=== PATIENT | male | born 1955 | race Two or more races ===

== ENCOUNTER 2020-04-19 15:23 | Inpatient (IN) | payer MEDICAID ==
[~2020-04-19] VITALS: Ht 167.6 cm; Wt 72.1 kg
[2020-04-19] MEDS ORDERED: SODIUM CHLORIDE 0.9% 1,000 ML IV ONE (15:46)
[2020-04-19 16:40] LABS: HEMATOCRIT. 49.8 % (42.0-52.0); HEMOGLOBIN. 17.6 g/dL (14.0-18.0); MEAN CORPUSCULAR HEMOGLOBIN 33.3 pg (28.0-32.0); MEAN CORPUSCULAR VOLUME 93.9 fL (80.0-94.0); MEAN PLATELET VOLUME 10.1 fl (7.4-10.4); PLATELET 204 x1000/uL (130-400); RED CELL DISTRIBUTION WIDTH 13.3 % (11.6-14.6)
[2020-04-19 16:43] LABS: CLARITY URINE CLOUDY (CLEAR); COLOR URINE DARK YELLOW (YELLOW); KETONES URINE TRACE (NEGATIVE); LEUKOCYTE ESTERASE URINE 1+ (NEGATIVE); NITRITE URINE NEGATIVE (NEGATIVE); OCCULT BLOOD URINE 3+ (NEGATIVE); PH URINE 5.5 (4.5-8.0); PROTEIN URINE 3+ (NEGATIVE); SPECIFIC GRAVITY URINE 1.024 (1.005-1.030)
[2020-04-19 16:48] LABS: CHLORIDE 112 mEq/L (98-107)
[2020-04-19 16:51] LABS: *AMPHETAMINES SCREEN URINE NEGATIVE (NEGATIVE); *BARBITURATES SCREEN URINE NEGATIVE (NEGATIVE); *BENZODIAZEPINES SCREEN URINE NEGATIVE (NEGATIVE); *COCAINE SCREEN URINE NEGATIVE (NEGATIVE); METHADONE URINE SCREEN NEGATIVE (NEGATIVE); OPIATES URINE SCREEN NEGATIVE (NEGATIVE)
[2020-04-19 16:52] LABS: CANNABINOID URINE SCREEN PRESUMTIVE POSITIVE (NEGATIVE); ETHANOL BLOOD < 10 mg/dL; PHENCYCLIDINE URINE SCREEN NEGATIVE (NEGATIVE)
[2020-04-19 16:56] LABS: CREATINE KINASE 58 IU/L (39-308)
[2020-04-19] MEDS ORDERED: CEFTRIAXONE 2 G PREMIX 50 ML IV ONE (17:30)
[2020-04-19] MEDS ORDERED: SODIUM CHLORIDE 0.9% 1000ML BAG (SEPSIS BOLUS) IV ONE (17:30)
[2020-04-19 19:04] LABS: PLATELET ESTIMATE NORMAL
[2020-04-19] MEDS ORDERED: CLONIDINE 0.1MG TABLET PO PRN (21:15)
[2020-04-19] MEDS ORDERED: ONDANSETRON HCL 4MG/2ML INJ IV PRN (21:15)
[2020-04-19] MEDS ORDERED: ACETAMINOPHEN 325MG TABLET PO PRN (21:15)
[2020-04-19] MEDS ORDERED: HYDROCODONE/ACETAMINOPHEN 5/325MG TABLET PO PRN (21:15)
[2020-04-19] MEDS ORDERED: MAGNESIUM/ALUMINUM HYDROXIDE/SIMETHICONE 30ML UDC PO PRN (21:15)
[2020-04-19] MEDS ORDERED: LEVOFLOXACIN 500MG PREMIX 100 ML IV SCH (21:30)
[2020-04-19] MEDS: ENOXAPARIN 40MG/0.4ML SYR SUBCUT SCH (21:30)
[2020-04-19] MEDS: SODIUM CHLORIDE 0.45% 1,000 ML IV SCH (21:30)
[2020-04-20 05:30] LABS: BASOPHILS % 0.3 % (0.0-2.0); HEMATOCRIT. 49.5 % (42.0-52.0); HEMOGLOBIN. 17.3 g/dL (14.0-18.0); LYMPHOCYTES % 11.6 % (20.0-50.0); MEAN CORPUSCULAR VOLUME 94.5 fL (80.0-94.0); MEAN PLATELET VOLUME 9.7 fl (7.4-10.4); MONOCYTES % 6.9 % (2.0-8.0); NEUTROPHILS % 80.2 % (40.0-76.0); PLATELET 192 x1000/uL (130-400); RED BLOOD CELL COUNT 5.23 mill/uL (4.7-6.1); RED CELL DISTRIBUTION WIDTH 13.4 % (11.6-14.6)
[2020-04-20 05:42] LABS: CHLORIDE 109 mEq/L (98-107)
[2020-04-20 05:52] LABS: LDL CHOLESTEROL 108 mg/dL (5-100)
[2020-04-20 05:53] LABS: HDL CHOLESTEROL 41 mg/dL (40-59)
[2020-04-20] MEDS: SODIUM CHLORIDE 0.45% 1,000 ML IV SCH ×2 (10:52→20:46)
[2020-04-20 16:00] VITALS: BP 158/50
[2020-04-20 16:06] VITALS: BP 158/50
[2020-04-20 18:00] VITALS: BP 155/100
[2020-04-20 20:00] VITALS: BP 146/99
[2020-04-20] MEDS: ENOXAPARIN 40MG/0.4ML SYR SUBCUT SCH (20:47)
[2020-04-20] MEDS: LEVOFLOXACIN 500MG PREMIX 100 ML IV SCH (20:47)
[2020-04-20] MEDS ORDERED: VANCOMYCIN 1250MG in DEXTROSE 5% WATER 250ML IV SCH (21:30)
[2020-04-20 22:00] VITALS: BP 132/97
[2020-04-21] VITALS (7 sets, daily range): BP systolic 119–176; BP diastolic 87–114
[2020-04-21 06:15] LABS: CHLORIDE 108 mEq/L (98-107)
[2020-04-21 06:16] LABS: BASOPHILS % 0.3 % (0.0-2.0); EOSINOPHILS % 0.7 % (0.0-5.0); HEMATOCRIT. 49.5 % (42.0-52.0); HEMOGLOBIN. 17.3 g/dL (14.0-18.0); LYMPHOCYTES % 9.3 % (20.0-50.0); MEAN CORPUSCULAR HEMOGLOBIN 32.9 pg (28.0-32.0); MEAN CORPUSCULAR VOLUME 94.2 fL (80.0-94.0); MEAN PLATELET VOLUME 9.9 fl (7.4-10.4); MONOCYTES % 9.9 % (2.0-8.0); NEUTROPHILS % 79.8 % (40.0-76.0); PLATELET 179 x1000/uL (130-400); RED BLOOD CELL COUNT 5.25 mill/uL (4.7-6.1); RED CELL DISTRIBUTION WIDTH 13.2 % (11.6-14.6)
[2020-04-21] MEDS: VANCOMYCIN 1 G PREMIX 200 ML IV SCH ×2 (09:43→20:33)
[2020-04-21] MEDS: SODIUM CHLORIDE 0.45% 1,000 ML IV SCH (12:34)
[2020-04-21] MEDS ORDERED: POTASSIUM CHLORIDE 20MEQ TABLET SR PO SCH (13:00)
[2020-04-21] MEDS: AMLODIPINE 10MG TABLET PO SCH (13:43)
[2020-04-21] MEDS: HYDRALAZINE HCL 25MG TABLET PO SCH ×2 (13:44→21:17)
[2020-04-21] MEDS: LEVOFLOXACIN 500MG PREMIX 100 ML IV SCH (20:32)
[2020-04-21] MEDS: ENOXAPARIN 40MG/0.4ML SYR SUBCUT SCH (20:37)
[2020-04-22] MEDS: SODIUM CHLORIDE 0.45% 1,000 ML IV SCH (04:53)
[2020-04-22] MEDS: HYDRALAZINE HCL 25MG TABLET PO SCH (05:00)
[2020-04-22 07:11] LABS: BASOPHILS % 0.3 % (0.0-2.0); EOSINOPHILS % 1.6 % (0.0-5.0); HEMATOCRIT. 47.1 % (42.0-52.0); HEMOGLOBIN. 16.9 g/dL (14.0-18.0); LYMPHOCYTES % 11.6 % (20.0-50.0); MEAN CORPUSCULAR HEMOGLOBIN 33.5 pg (28.0-32.0); MEAN CORPUSCULAR VOLUME 93.4 fL (80.0-94.0); MEAN PLATELET VOLUME 10.1 fl (7.4-10.4); MONOCYTES % 9.7 % (2.0-8.0); NEUTROPHILS % 76.8 % (40.0-76.0); PLATELET 169 x1000/uL (130-400); RED BLOOD CELL COUNT 5.04 mill/uL (4.7-6.1); RED CELL DISTRIBUTION WIDTH 13.6 % (11.6-14.6)
[2020-04-22 07:13] LABS: CHLORIDE 108 mEq/L (98-107)
[2020-04-22 08:00] VITALS: BP 124/83
[2020-04-22] MEDS: VANCOMYCIN 1 G PREMIX 200 ML IV SCH (08:41)
[2020-04-22] MEDS: AMLODIPINE 10MG TABLET PO SCH (08:42)
[2020-04-22 12:00] VITALS: BP 101/58
[2020-04-22] MEDS ORDERED: HYDR-4135 MT (12:25)
[2020-04-22] MEDS ORDERED: NITR-87 MT (12:25)
[2020-04-22] MEDS ORDERED: ATOR20TA MT (12:25)
[2020-04-22] MEDS ORDERED: AMLO10TA4 PO (12:28)
[2020-04-22] MEDS ORDERED: HYDRALAZINE HCL 50MG TABLET PO SCH (14:00)
[2020-04-22 16:00] VITALS: BP 125/85
[2020-04-22 18:25] VITALS: BP 110/84
[2020-04-22 20:00] VITALS: BP 99/62
[2020-04-22] MEDS ORDERED: LEVOFLOXACIN 500MG TABLET PO SCH (21:00)
[2020-04-22] MEDS ORDERED: ATORVASTATIN CALCIUM 20MG TABLET PO SCH (21:00)
[2020-04-23] MEDS ORDERED: VANCOMYCIN 1 G PREMIX 200 ML IV SCH (06:00)
== END 2020-04-22 21:45 | disposition home or self-care (01) | DRG 720 ==
LOC: ER 15:23 → MICUSO 18:29 → EDBEDREQ 18:30 → EDBEDREQTM 18:30 → 5EST 04-20 15:10
PROVIDERS: ADMIT Hospitalist; ATTEND Hospitalist
DX: A41.9 Sepsis, unspecified organism (principal); N39.0 Urinary tract infection, site not specified; I10 Essential (primary) hypertension; I95.9 Hypotension, unspecified; G91.9 Hydrocephalus, unspecified; B96.89 Other specified bacterial agents as the cause of diseases classified elsewhere; E78.5 Hyperlipidemia, unspecified; Z86.73 Personal history of transient ischemic attack (TIA), and cerebral infarction without residual deficits; E87.8 Other disorders of electrolyte and fluid balance, not elsewhere classified
CPT/HCPCS: 36415; 71045; 80048; 80053; 80061; 80202; 80305; 80320; 81003; 82140; 82550; 83605; 83735; 83880; 84484; 85025; 93005; 93970; 97162; 97530; 99291; J1650; J1956; J3370; J7030; J7060; G0480

== ENCOUNTER 2021-12-29 02:52 | Emergency (ER) | payer MEDICAID ==
[~2021-12-29] VITALS: Ht 170.2 cm; Wt 80.0 kg
[~2021-12-29 02:52] MED LIST: AMLO10TA4 PO; ATOR20TA MT; HYDR-4135 MT; NITR-87 MT
[2021-12-29] MEDS ORDERED: NEOMYCIN/POLYMYXN B/GRAMICIDIN OPHTH DROPS 10ML BOTHEYE STA (03:37)
[2021-12-29] MEDS ORDERED: BACI3.5O19 EACHEYE (04:15)
[2021-12-29 05:25] VITALS: BP 119/79
== END 2021-12-29 07:18 ==
LOC: ER 02:52
DX: H10.023 Other mucopurulent conjunctivitis, bilateral (principal); H17.89 Other corneal scars and opacities; I10 Essential (primary) hypertension; H54.8 Legal blindness, as defined in USA; Z86.73 Personal history of transient ischemic attack (TIA), and cerebral infarction without residual deficits
CPT/HCPCS: 99283

== ENCOUNTER 2023-01-17 01:48 | Emergency (ER) | payer MEDICAID ==
[~2023-01-17] VITALS: Ht 167.6 cm; Wt 60.0 kg
[~2023-01-17 01:48] MED LIST changes: +BACI3.5O19 EACHEYE
[2023-01-17] MEDS ORDERED: PIPERACILLIN/TAZ 3.375G PREMIX 50 ML IV ONE (03:00)
[2023-01-17] MEDS ORDERED: VANCOMYCIN 1G PREMIX 200 ML IV ONE (03:00)
[2023-01-17] MEDS ORDERED: SODIUM CHLORIDE 0.9% 1,000 ML IV ONE (03:00)
[2023-01-17 03:56] LABS: BASOPHILS % 0.4 % (0.0-2.0); EOSINOPHILS % 3.3 % (0.0-5.0); HEMATOCRIT. 42.1 % (42.0-52.0); LYMPHOCYTES % 11.7 % (20.0-50.0); MEAN CORPUSCULAR HEMOGLOBIN 28.5 pg (28.0-32.0); MEAN CORPUSCULAR VOLUME 85.8 fL (80.0-94.0); MEAN PLATELET VOLUME 9.5 fl (7.4-10.4); MONOCYTES % 10.8 % (2.0-8.0); NEUTROPHILS % 73.8 % (40.0-76.0); PLATELET 225 x1000/uL (130-400); RED CELL DISTRIBUTION WIDTH 13.4 % (11.6-14.6)
[2023-01-17 04:12] LABS: CHLORIDE 108 mEq/L (98-107)
[2023-01-17] MEDS ORDERED: PRED10TA MT (04:53)
[2023-01-17 12:20] VITALS: BP 123/78
== END 2023-01-17 12:47 ==
LOC: ER 01:48
DX: R05.9 Cough, unspecified (principal); I10 Essential (primary) hypertension; Z20.822 Contact with and (suspected) exposure to COVID-19; Z86.73 Personal history of transient ischemic attack (TIA), and cerebral infarction without residual deficits
CPT/HCPCS: 36415; 71045; 80053; 83605; 83880; 84484; 85025; 85379; 87040; 87426; 87804; 93005; 96365; 96366; 96368; 99285; C9803; J2543; J3370; Z7610

== ENCOUNTER 2023-05-15 15:17 | Inpatient (IN) | payer MEDICAID ==
[~2023-05-15] VITALS: Ht 165.1 cm; Wt 47.2 kg
[~2023-05-15 15:17] MED LIST changes: -AMLO10TA4 PO; -BACI3.5O19 EACHEYE; -HYDR-4135 MT; -NITR-87 MT; +PROT40 PO
[2023-05-15] MEDS ORDERED: PIPERACILLIN/TAZ 3.375G PREMIX 50 ML IV NR (16:10)
[2023-05-15] MEDS ORDERED: PIPERACILLIN/TAZOBACTAM 3.375GM/50ML PREMIX IV ONE (16:15)
[2023-05-15] MEDS ORDERED: SODIUM CHLORIDE 0.9% 1000ML BAG (SEPSIS BOLUS) IV ONE (16:15)
[2023-05-15] MEDS ORDERED: VANCOMYCIN 1G PREMIX 200 ML IV SCH (16:15)
[2023-05-15 16:35] LABS: MEAN CORPUSCULAR HGB CONC 30.6 g/dL (31.0-37.0); MEAN CORPUSCULAR VOLUME 78.5 fL (80.0-94.0); MEAN PLATELET VOLUME 9.5 fl (7.4-10.4); PLATELET 470 x1000/uL (130-400); RED BLOOD CELL COUNT 4.59 mill/uL (4.7-6.1); RED CELL DISTRIBUTION WIDTH 19.3 % (11.6-14.6); WHITE BLOOD COUNT 27.2 x1000/uL (4.5-11.0)
[2023-05-15 16:36] LABS: DIFFERENTIAL COMMENT 1
[2023-05-15 16:51] LABS: CHLORIDE 115 mEq/L (98-107); INDEX HEMOLYSI 4 (1-3); INDEX ICTERIC 1 (1-4); INDEX LIPEMIC 1 (1-3); POTASSIUM 4.2 mEq/L (3.5-5.1); SODIUM 144 mEq/L (136-145)
[2023-05-15 17:00] LABS: ALANINE AMINOTRANSFERASE 14 IU/L (13-61); ALBUMIN 1.9 g/dL (3.4-5.0); ASPARTATE AMINOTRANSFERASE 26 IU/L (15-37); BILIRUBIN TOTAL 0.4 mg/dL (0.1-1.0); CALCIUM 7.8 mg/dL (8.5-10.1); CARBON DIOXIDE 25 mEq/L (21-32); CREATININE 0.8 mg/dL (0.6-1.3); GLUCOSE 113 mg/dL (70-105); PROTEIN TOTAL 5.8 g/dL (6.0-8.3); TROPONIN I HIGH SENSITIVITY 11 ng/L (<78); UREA NITROGEN BLOOD 23 mg/dL (7-21)
[2023-05-15 17:39] LABS: CLARITY URINE CLEAR (CLEAR); COLOR URINE YELLOW (YELLOW); GLUCOSE URINE NEGATIVE (NEGATIVE); KETONES URINE NEGATIVE (NEGATIVE); LEUKOCYTE ESTERASE URINE NEGATIVE (NEGATIVE); NITRITE URINE NEGATIVE (NEGATIVE); OCCULT BLOOD URINE 3+ (NEGATIVE); PH URINE 5.5 (4.5-8.0); PROTEIN URINE 2+ (NEGATIVE); SPECIFIC GRAVITY URINE 1.024 (1.005-1.030); UROBILINOGEN URINE 0.2 E.U./dL (0.2-1.0)
[2023-05-15 18:07] LABS: BACTERIA URINE 1+; SQUAMOUS EPITHELIAL CELL URINE RARE /lpf (RARE/1+)
[2023-05-15 18:08] LABS: WBC URINE 0-2 /hpf (0-2)
[2023-05-15 18:09] LABS: INR 1.2; PROTHROMBIN TIME 12.5 sec (9.6-11.0)
[2023-05-15 19:03] LABS: ANISOCYTOSIS 1+; HYPOCHROMASIA 1+; MICROCYTOSIS 1+; PLATELET ESTIMATE INCREASED
[2023-05-15] MEDS ORDERED: ACETAMINOPHEN 325MG SUPP PR ONE (19:30)
[2023-05-15 19:44] LABS: TROPONIN I HIGH SENSITIVITY 26 ng/L (<78)
[2023-05-15] MEDS ORDERED: ACETAMINOPHEN 650MG SUPP PR ONE (19:45)
[2023-05-15 21:43] VITALS: PULSE 139; RESP 36
[2023-05-15] MEDS ORDERED: PROPOFOL 10MG/ML 100ML 100 ML IV SCH (22:15)
[2023-05-15] MEDS ORDERED: ETOMIDATE 2MG/ML 10ML VIAL IV ONE (22:15)
[2023-05-15] MEDS ORDERED: SUCCINYLCHOLINE CHLORIDE 200MG/10ML IV ONE (22:15)
[2023-05-15 23:32] LABS: BG BASE EXCESS 1.5 mmol/L (-2.0-2.0); BG CARBOXYHEMOGLOBIN 0.3 % (0.5-1.5); BG DEOXYHEMOGLOBIN 0.2 % (0.0-5.0); BG FRACTION INSPIRED OXYGEN 100; BG HCO3 ACT 23.6 mmol/L (22.0-26.0); BG METHEMOGLOBIN 0.3 % (0.0-1.5); BG OXYGEN SATURATION 99.8 % (92.0-98.5); BG OXYHEMOGLOBIN 99.2 % (94.0-97.0); BG PCO2 29.4 mmHg (35.0-45.0); BG PH 7.522 (7.350-7.450); BG SAMPLE SITE RIGHT RADIAL; BG TOTAL HEMOGLOBIN 11.6 g/dL (12.0-18.0); BG VENT MODE VENT - AC
[2023-05-16] VITALS (90 sets, daily range): BP systolic 52–131; BP diastolic 28–76; PULSE 79–151; RESP 19–49; TEMP 97.8–100.7
[2023-05-16] MEDS ORDERED: DIGOXIN 500MCG/2ML AMP IV NR (01:30)
[2023-05-16] MEDS: CEFEPIME 1,000 MG in DEXTROSE 5% WATER 50 ML IV SCH ×2 (05:24→18:11)
[2023-05-16] MEDS: METRONIDAZOLE 500 MG PREMIX 100 ML IV SCH ×3 (05:25→21:14)
[2023-05-16] MEDS ORDERED: DIGOXIN 500MCG/2ML AMP IV PRN (06:00)
[2023-05-16] MEDS: IPRATROPIUM BROMIDE (0.02%) 0.5MG/2.5ML NEB HHN SCH ×3 (08:27→20:11)
[2023-05-16] MEDS ORDERED: SODIUM CHLORIDE 0.9% 250 ML IV ONE (08:30)
[2023-05-16 08:32] LABS: BG CARBOXYHEMOGLOBIN 0.2 % (0.5-1.5); BG DEOXYHEMOGLOBIN 0.7 % (0.0-5.0); BG FRACTION INSPIRED OXYGEN 70; BG HCO3 ACT 21.5 mmol/L (22.0-26.0); BG METHEMOGLOBIN 0.3 % (0.0-1.5); BG OXYGEN SATURATION 99.3 % (92.0-98.5); BG OXYHEMOGLOBIN 98.8 % (94.0-97.0); BG PCO2 26.2 mmHg (35.0-45.0); BG PH 7.532 (7.350-7.450); BG PO2 199.5 mmHg (75.0-100.0); BG SAMPLE SITE RIGHT RADIAL; BG TOTAL HEMOGLOBIN 11.8 g/dL (12.0-18.0); BG VENT MODE VENT - AC
[2023-05-16] MEDS: SODIUM CHLORIDE 0.9% 1,000 ML IV SCH ×2 (08:33→21:16)
[2023-05-16] MEDS: PHENYLEPHRINE 50 MG in DEXT 5% WATER 245 ML IV PRN ×2 (08:39→18:07)
[2023-05-16 08:56] LABS: HEMATOCRIT. 36.1 % (42.0-52.0); HEMOGLOBIN. 10.9 g/dL (14.0-18.0); MEAN CORPUSCULAR HGB CONC 30.2 g/dL (31.0-37.0); MEAN CORPUSCULAR VOLUME 79.6 fL (80.0-94.0); MEAN PLATELET VOLUME 9.5 fl (7.4-10.4); PLATELET 488 x1000/uL (130-400); RED BLOOD CELL COUNT 4.54 mill/uL (4.7-6.1); WHITE BLOOD COUNT 33.9 x1000/uL (4.5-11.0)
[2023-05-16] MEDS ORDERED: DIATR MEGLU/DIATRIZOATE SOLN 30ML PO SCH (09:00)
[2023-05-16 09:03] LABS: DIFFERENTIAL COMMENT 1
[2023-05-16 09:23] LABS: POTASSIUM 4.8 mEq/L (3.5-5.1)
[2023-05-16 09:36] LABS: CALCIUM 8.2 mg/dL (8.5-10.1); CREATININE 1.7 mg/dL (0.6-1.3)
[2023-05-16 09:47] LABS: DIFFERENTIAL COMMENT 1; HEMATOCRIT. 38.4 % (42.0-52.0); HEMOGLOBIN. 11.5 g/dL (14.0-18.0); MEAN CORPUSCULAR HEMOGLOBIN 24.4 pg (28.0-32.0); MEAN CORPUSCULAR VOLUME 81.3 fL (80.0-94.0); MEAN PLATELET VOLUME 10.2 fl (7.4-10.4); PLATELET 522 x1000/uL (130-400); RED BLOOD CELL COUNT 4.73 mill/uL (4.7-6.1); RED CELL DISTRIBUTION WIDTH 19.8 % (11.6-14.6); WHITE BLOOD COUNT 33.7 x1000/uL (4.5-11.0)
[2023-05-16 09:57] LABS: LACTIC ACID 6.4 mmol/L (0.4-2.0)
[2023-05-16] MEDS ORDERED: LIDOCAINE HCL 1% 10 MG/ML 10ML VIAL ONE (10:49)
[2023-05-16] MEDS ORDERED: AMIODARONE HCL 150 MG in DEXT 5% WATER 100 ML IV NR (11:30)
[2023-05-16] MEDS ORDERED: ALBUMIN HUMAN 25GM/500ML (5%) IV PRN (11:30)
[2023-05-16 13:24] LABS: THYROID STIMULATING HORMONE 3.9 uIU/mL (0.36-3.74)
[2023-05-16 17:44] LABS: ANISOCYTOSIS 2+; HYPOCHROMASIA 1+; PLATELET ESTIMATE INCREASED
[2023-05-16 17:47] LABS: ANISOCYTOSIS 1+; HYPOCHROMASIA 1+; MICROCYTOSIS 1+; PLATELET ESTIMATE INCREASED
[2023-05-16] MEDS: DEXTROSE 5% IV SCH (18:10)
[2023-05-16] MEDS: ACYCLOVIR IV SCH (18:10)
[2023-05-16] MEDS: WATER IV SCH (18:10)
[2023-05-16] MEDS: VANCOMYCIN 1000MG/20ML ORAL SOLN PO SCH ×2 (18:30→23:12)
[2023-05-16] MEDS: AMIODARONE HCL 900 MG in DEXT 5% WATER 482 ML IV SCH (19:55)
[2023-05-17] VITALS (102 sets, daily range): BP systolic 85–133; BP diastolic 57–93; PULSE 55–88; RESP 16–30; TEMP 97.6–98.8
[2023-05-17] MEDS: PHENYLEPHRINE 50 MG in DEXT 5% WATER 245 ML IV PRN ×3 (00:39→16:27)
[2023-05-17] MEDS: SODIUM CHLORIDE 0.9% 1,000 ML IV SCH ×4 (00:40→23:42)
[2023-05-17] MEDS: WATER IV SCH (05:21)
[2023-05-17] MEDS: DEXTROSE 5% IV SCH (05:21)
[2023-05-17] MEDS: ACYCLOVIR IV SCH (05:21)
[2023-05-17] MEDS: CEFEPIME 1,000 MG in DEXTROSE 5% WATER 50 ML IV SCH ×2 (05:21→17:28)
[2023-05-17 06:04] LABS: CHLORIDE 116 mEq/L (98-107); INDEX HEMOLYSI 1 (1-3); INDEX ICTERIC 1 (1-4); INDEX LIPEMIC 1 (1-3); POTASSIUM 3.1 mEq/L (3.5-5.1); SODIUM 147 mEq/L (136-145)
[2023-05-17 06:11] LABS: CALCIUM 7.5 mg/dL (8.5-10.1); CARBON DIOXIDE 22 mEq/L (21-32); CREATININE 1.1 mg/dL (0.6-1.3); GLUCOSE 140 mg/dL (70-105); UREA NITROGEN BLOOD 44 mg/dL (7-21)
[2023-05-17] MEDS: METRONIDAZOLE 500 MG PREMIX 100 ML IV SCH ×3 (06:12→21:39)
[2023-05-17] MEDS: VANCOMYCIN 1000MG/20ML ORAL SOLN PO SCH ×4 (06:12→23:42)
[2023-05-17 06:30] LABS: HEMATOCRIT. 31.3 % (42.0-52.0); HEMOGLOBIN. 9.3 g/dL (14.0-18.0); MEAN CORPUSCULAR HEMOGLOBIN 23.7 pg (28.0-32.0); MEAN CORPUSCULAR HGB CONC 29.8 g/dL (31.0-37.0); MEAN CORPUSCULAR VOLUME 79.4 fL (80.0-94.0); MEAN PLATELET VOLUME 9.7 fl (7.4-10.4); PLATELET 410 x1000/uL (130-400); RED BLOOD CELL COUNT 3.95 mill/uL (4.7-6.1); RED CELL DISTRIBUTION WIDTH 19.3 % (11.6-14.6); WHITE BLOOD COUNT 28.8 x1000/uL (4.5-11.0)
[2023-05-17 06:33] LABS: DIFFERENTIAL COMMENT 1
[2023-05-17 07:55] LABS: BG BASE EXCESS -2.6 mmol/L (-2.0-2.0); BG CARBOXYHEMOGLOBIN 0.3 % (0.5-1.5); BG DEOXYHEMOGLOBIN 0.6 % (0.0-5.0); BG FRACTION INSPIRED OXYGEN 40; BG HCO3 ACT 19.7 mmol/L (22.0-26.0); BG METHEMOGLOBIN 0.4 % (0.0-1.5); BG OXYGEN SATURATION 99.4 % (92.0-98.5); BG OXYHEMOGLOBIN 98.7 % (94.0-97.0); BG PCO2 26.1 mmHg (35.0-45.0); BG PH 7.496 (7.350-7.450); BG PO2 156.7 mmHg (75.0-100.0); BG SAMPLE SITE LEFT RADIAL; BG TOTAL HEMOGLOBIN 9.5 g/dL (12.0-18.0); BG TOTAL RESPIRATORY RATE 24 b/min; BG VENT MODE VENT - AC
[2023-05-17] MEDS: IPRATROPIUM BROMIDE (0.02%) 0.5MG/2.5ML NEB HHN SCH ×3 (08:46→20:10)
[2023-05-17] MEDS: KCL 20MEQ/100ML PREMIX 100 ML IV SCH ×2 (09:19→12:12)
[2023-05-17 09:52] LABS: ANISOCYTOSIS 1+; PLATELET ESTIMATE SLIGHTLY INCREASED
[2023-05-17] MEDS ORDERED: ALBUMIN HUMAN 25GM/500ML (5%) IV PRN (10:00)
[2023-05-17] MEDS: AMIODARONE HCL 200 MG TABLET GT SCH ×2 (12:12→23:41)
[2023-05-17] MEDS: AMIODARONE HCL 900 MG in DEXT 5% WATER 482 ML IV SCH (13:42)
[2023-05-17] MEDS: ACYCLOVIR INJ 500 MG in DEXT 5% WATER 100 ML IV SCH (18:01)
[2023-05-18] VITALS (99 sets, daily range): BP systolic 82–130; BP diastolic 42–87; PULSE 33–174; RESP 7–36; TEMP 97.7–98.7; O2SAT 99–100
[2023-05-18] MEDS: ACYCLOVIR INJ 500 MG in DEXT 5% WATER 100 ML IV SCH ×3 (01:21→18:07)
[2023-05-18] MEDS: IPRATROPIUM BROMIDE (0.02%) 0.5MG/2.5ML NEB HHN SCH ×4 (01:58→20:06)
[2023-05-18] MEDS: PHENYLEPHRINE 50 MG in DEXT 5% WATER 245 ML IV PRN ×2 (04:45→23:42)
[2023-05-18 05:12] LABS: CHLORIDE 118 mEq/L (98-107); INDEX HEMOLYSI 1 (1-3); INDEX ICTERIC 1 (1-4); INDEX LIPEMIC 1 (1-3); SODIUM 145 mEq/L (136-145)
[2023-05-18 05:13] LABS: CALCIUM 7.5 mg/dL (8.5-10.1)
[2023-05-18 05:18] LABS: CARBON DIOXIDE 20 mEq/L (21-32); CREATININE 0.7 mg/dL (0.6-1.3); GLUCOSE 119 mg/dL (70-105); UREA NITROGEN BLOOD 28 mg/dL (7-21)
[2023-05-18 05:49] LABS: LACTIC ACID 2.1 mmol/L (0.4-2.0)
[2023-05-18] MEDS: CEFEPIME 1,000 MG in DEXTROSE 5% WATER 50 ML IV SCH ×2 (05:52→17:08)
[2023-05-18] MEDS: METRONIDAZOLE 500 MG PREMIX 100 ML IV SCH ×3 (05:52→21:10)
[2023-05-18] MEDS: VANCOMYCIN 1000MG/20ML ORAL SOLN PO SCH ×4 (05:53→23:47)
[2023-05-18 07:07] LABS: HEMATOCRIT. 25.3 % (42.0-52.0); HEMOGLOBIN. 7.4 g/dL (14.0-18.0); MEAN CORPUSCULAR HEMOGLOBIN 23.2 pg (28.0-32.0); MEAN CORPUSCULAR HGB CONC 29.4 g/dL (31.0-37.0); MEAN CORPUSCULAR VOLUME 78.8 fL (80.0-94.0); MEAN PLATELET VOLUME 9.5 fl (7.4-10.4); PLATELET 300 x1000/uL (130-400); RED CELL DISTRIBUTION WIDTH 19.4 % (11.6-14.6); WHITE BLOOD COUNT 18.3 x1000/uL (4.5-11.0)
[2023-05-18 07:13] LABS: DIFFERENTIAL COMMENT 1
[2023-05-18] MEDS ORDERED: POTASSIUM CHLORIDE 20MEQ/PACKET PO ONE (07:30)
[2023-05-18] MEDS ORDERED: POTASSIUM CHLORIDE INJ 40 MEQ in DEXT 5% WATER 250 ML IV ONE (07:30)
[2023-05-18 09:09] LABS: BG BASE EXCESS -4.4 mmol/L (-2.0-2.0); BG CARBOXYHEMOGLOBIN 0.3 % (0.5-1.5); BG DEOXYHEMOGLOBIN 1.4 % (0.0-5.0); BG FRACTION INSPIRED OXYGEN 30; BG HCO3 ACT 18.3 mmol/L (22.0-26.0); BG METHEMOGLOBIN 0.3 % (0.0-1.5); BG OXYGEN SATURATION 98.6 % (92.0-98.5); BG PCO2 25.4 mmHg (35.0-45.0); BG PH 7.475 (7.350-7.450); BG PO2 146.2 mmHg (75.0-100.0); BG SAMPLE SITE RIGHT RADIAL; BG TOTAL HEMOGLOBIN 8.5 g/dL (12.0-18.0); BG VENT MODE VENT - AC
[2023-05-18] MEDS: POTASSIUM CHLORIDE 20MEQ TABLET SR PO SCH (09:39)
[2023-05-18] MEDS: KCL 20MEQ/100ML X 2 FOR TOTAL KCL 40MEQ/200ML IV SCH ×2 (09:40→11:00)
[2023-05-18] MEDS: SODIUM CHLORIDE 0.9% 1,000 ML IV SCH ×3 (09:40→23:45)
[2023-05-18 11:21] LABS: HEMOGLOBIN. 7.6 g/dL (14.0-18.0); MEAN CORPUSCULAR HEMOGLOBIN 23.6 pg (28.0-32.0); MEAN CORPUSCULAR HGB CONC 30.5 g/dL (31.0-37.0); MEAN CORPUSCULAR VOLUME 77.7 fL (80.0-94.0); MEAN PLATELET VOLUME 9.8 fl (7.4-10.4); PLATELET 305 x1000/uL (130-400); RED BLOOD CELL COUNT 3.22 mill/uL (4.7-6.1); RED CELL DISTRIBUTION WIDTH 18.7 % (11.6-14.6); WHITE BLOOD COUNT 17.8 x1000/uL (4.5-11.0)
[2023-05-18 11:24] LABS: BG BASE EXCESS -4.2 mmol/L (-2.0-2.0); BG CARBOXYHEMOGLOBIN 0.2 % (0.5-1.5); BG DEOXYHEMOGLOBIN 1.8 % (0.0-5.0); BG FRACTION INSPIRED OXYGEN 30; BG HCO3 ACT 18.7 mmol/L (22.0-26.0); BG OXYGEN SATURATION 98.2 % (92.0-98.5); BG PCO2 26.4 mmHg (35.0-45.0); BG PH 7.467 (7.350-7.450); BG PO2 139.1 mmHg (75.0-100.0); BG SAMPLE SITE RIGHT RADIAL; BG TOTAL HEMOGLOBIN 8.6 g/dL (12.0-18.0); BG VENT MODE VENT - CPAP
[2023-05-18 11:28] LABS: DIFFERENTIAL COMMENT 1
[2023-05-18 11:47] LABS: PLATELET ESTIMATE NORMAL
[2023-05-18 11:48] LABS: ANISOCYTOSIS 1+
[2023-05-18] MEDS: MUPIROCIN 2% OINT 15GM NS SCH ×2 (13:17→21:12)
[2023-05-18 14:09] LABS: HYPOCHROMASIA 1+; MICROCYTOSIS 1+; PLATELET ESTIMATE NORMAL
[2023-05-18] MEDS ORDERED: MENTHOL/LANOLIN/CALAMINE/ZN OX OINT 71GM TOP PRN (14:45)
[2023-05-18] MEDS: ACETYLCYSTEINE 100MG/ML 10% VIAL 4ML INH SCH (15:46)
[2023-05-18] MEDS ORDERED: VANCOMYCIN 750MG PREMIX 150 ML IV NR (16:00)
[2023-05-19] VITALS (60 sets, daily range): BP systolic 90–138; BP diastolic 52–89; PULSE 63–81; RESP 10–25; TEMP 97.8–98.7; O2SAT 97–100
[2023-05-19] MEDS: IPRATROPIUM BROMIDE (0.02%) 0.5MG/2.5ML NEB HHN SCH ×4 (00:22→20:38)
[2023-05-19] MEDS: ACYCLOVIR INJ 500 MG in DEXT 5% WATER 100 ML IV SCH ×2 (01:21→09:27)
[2023-05-19 06:04] LABS: CHLORIDE 115 mEq/L (98-107); INDEX HEMOLYSI 1 (1-3); INDEX ICTERIC 1 (1-4); INDEX LIPEMIC 1 (1-3); POTASSIUM 3.1 mEq/L (3.5-5.1); SODIUM 143 mEq/L (136-145)
[2023-05-19 06:07] LABS: HEMATOCRIT. 26.7 % (42.0-52.0); HEMOGLOBIN. 8.2 g/dL (14.0-18.0); MEAN CORPUSCULAR HEMOGLOBIN 23.9 pg (28.0-32.0); MEAN CORPUSCULAR HGB CONC 30.5 g/dL (31.0-37.0); MEAN CORPUSCULAR VOLUME 78.4 fL (80.0-94.0); MEAN PLATELET VOLUME 9.9 fl (7.4-10.4); PLATELET 288 x1000/uL (130-400); RED BLOOD CELL COUNT 3.41 mill/uL (4.7-6.1); RED CELL DISTRIBUTION WIDTH 18.7 % (11.6-14.6); WHITE BLOOD COUNT 11.5 x1000/uL (4.5-11.0)
[2023-05-19] MEDS: VANCOMYCIN 500MG PREMIX 100 ML IV SCH ×2 (06:14→18:34)
[2023-05-19] MEDS: CEFEPIME 1,000 MG in DEXTROSE 5% WATER 50 ML IV SCH ×2 (06:14→18:34)
[2023-05-19] MEDS: METRONIDAZOLE 500 MG PREMIX 100 ML IV SCH ×2 (06:14→14:25)
[2023-05-19 06:15] LABS: CALCIUM 7.4 mg/dL (8.5-10.1); CARBON DIOXIDE 22 mEq/L (21-32); CREATININE 0.6 mg/dL (0.6-1.3); GLUCOSE 95 mg/dL (70-105); PHOSPHORUS 1.3 mg/dL (2.5-4.9); UREA NITROGEN BLOOD 15 mg/dL (7-21)
[2023-05-19] MEDS: VANCOMYCIN 1000MG/20ML ORAL SOLN PO SCH ×3 (06:15→18:34)
[2023-05-19 06:41] LABS: DIFFERENTIAL COMMENT 1
[2023-05-19] MEDS ORDERED: POTASSIUM CHLORIDE 20MEQ TABLET SR PO SCH (08:00)
[2023-05-19 08:26] LABS: BG BASE EXCESS -4.4 mmol/L (-2.0-2.0); BG CARBOXYHEMOGLOBIN 0.3 % (0.5-1.5); BG DEOXYHEMOGLOBIN 2.1 % (0.0-5.0); BG FRACTION INSPIRED OXYGEN 21; BG HCO3 ACT 18.5 mmol/L (22.0-26.0); BG METHEMOGLOBIN 0.1 % (0.0-1.5); BG OXYGEN SATURATION 97.9 % (92.0-98.5); BG OXYHEMOGLOBIN 97.5 % (94.0-97.0); BG PCO2 26.6 mmHg (35.0-45.0); BG PH 7.461 (7.350-7.450); BG PO2 106.4 mmHg (75.0-100.0); BG SAMPLE SITE RIGHT RADIAL; BG TOTAL HEMOGLOBIN 8.6 g/dL (12.0-18.0); BG VENT MODE ROOM AIR
[2023-05-19] MEDS: ACETYLCYSTEINE 100MG/ML 10% VIAL 4ML INH SCH ×2 (08:55→15:45)
[2023-05-19] MEDS ORDERED: POTASSIUM PHOS,M-BASIC-D-BASIC 30 MMOL in DEXT 5% WATER 500 ML IV NR (09:00)
[2023-05-19] MEDS: MUPIROCIN 2% OINT 15GM NS SCH ×2 (09:00→21:54)
[2023-05-19] MEDS: POTASSIUM CHLORIDE 20MEQ TABLET SR PO SCH (09:11)
[2023-05-19] MEDS: SODIUM CHLORIDE 0.9% 1,000 ML IV SCH ×2 (09:36→17:32)
[2023-05-19] MEDS: MIDODRINE HCL 5MG TABLET PO SCH ×2 (10:00→18:34)
[2023-05-19 14:22] LABS: PLATELET ESTIMATE NORMAL
[2023-05-19] MEDS ORDERED: KCL 20MEQ/100ML PREMIX 100 ML IV NR (16:00)
[2023-05-19] MEDS: ACYCLOVIR 400 MG TABLET PO SCH (18:34)
[2023-05-19] MEDS: BUDESONIDE 0.5MG/2ML NEB HHN SCH (20:38)
[2023-05-19] MEDS: METRONIDAZOLE 500MG TABLET PO SCH (21:53)
[2023-05-20] VITALS (46 sets, daily range): BP systolic 92–126; BP diastolic 52–85; PULSE 65–89; RESP 9–24; TEMP 97.6–98.7; O2SAT 98–100
[2023-05-20] MEDS: IPRATROPIUM BROMIDE (0.02%) 0.5MG/2.5ML NEB HHN SCH ×4 (00:30→21:16)
[2023-05-20] MEDS: ACETYLCYSTEINE 100MG/ML 10% VIAL 4ML INH SCH ×3 (00:30→14:30)
[2023-05-20] MEDS: ACYCLOVIR 400 MG TABLET PO SCH ×4 (00:38→18:05)
[2023-05-20] MEDS: VANCOMYCIN 1000MG/20ML ORAL SOLN PO SCH ×4 (00:38→18:17)
[2023-05-20] MEDS: SODIUM CHLORIDE 0.9% 1,000 ML IV SCH ×4 (00:40→23:18)
[2023-05-20] MEDS: MIDODRINE HCL 5MG TABLET PO SCH ×3 (02:36→18:05)
[2023-05-20] MEDS: VANCOMYCIN 500MG PREMIX 100 ML IV SCH ×2 (06:22→18:04)
[2023-05-20] MEDS: CEFEPIME 1,000 MG in DEXTROSE 5% WATER 50 ML IV SCH ×2 (06:22→18:05)
[2023-05-20 06:40] LABS: HEMATOCRIT. 26.6 % (42.0-52.0); HEMOGLOBIN. 8.1 g/dL (14.0-18.0); MEAN CORPUSCULAR HEMOGLOBIN 23.7 pg (28.0-32.0); MEAN CORPUSCULAR HGB CONC 30.6 g/dL (31.0-37.0); MEAN CORPUSCULAR VOLUME 77.5 fL (80.0-94.0); PLATELET 275 x1000/uL (130-400); RED BLOOD CELL COUNT 3.43 mill/uL (4.7-6.1); RED CELL DISTRIBUTION WIDTH 18.6 % (11.6-14.6); WHITE BLOOD COUNT 11.1 x1000/uL (4.5-11.0)
[2023-05-20 06:44] LABS: CHLORIDE 113 mEq/L (98-107); INDEX HEMOLYSI 1 (1-3); INDEX ICTERIC 1 (1-4); INDEX LIPEMIC 1 (1-3); POTASSIUM 3.2 mEq/L (3.5-5.1); SODIUM 140 mEq/L (136-145)
[2023-05-20 06:46] LABS: DIFFERENTIAL COMMENT 1
[2023-05-20 06:54] LABS: CALCIUM 7.3 mg/dL (8.5-10.1); CARBON DIOXIDE 20 mEq/L (21-32); CREATININE 0.5 mg/dL (0.6-1.3); GLUCOSE 78 mg/dL (70-105); UREA NITROGEN BLOOD 12 mg/dL (7-21)
[2023-05-20] MEDS ORDERED: POTASSIUM CHLORIDE 20MEQ TABLET SR PO NR (07:00)
[2023-05-20] MEDS: METRONIDAZOLE 500MG TABLET PO SCH ×2 (09:09→21:24)
[2023-05-20] MEDS: POTASSIUM CHLORIDE 20MEQ TABLET SR PO SCH (09:10)
[2023-05-20] MEDS: MUPIROCIN 2% OINT 15GM NS SCH ×2 (09:10→21:25)
[2023-05-20] MEDS: BUDESONIDE 0.5MG/2ML NEB HHN SCH ×2 (09:50→21:17)
[2023-05-20 10:37] LABS: ANISOCYTOSIS 2+; MICROCYTOSIS 1+; PLATELET ESTIMATE NORMAL
[2023-05-20] MEDS ORDERED: SODIUM PHOS,M-BASIC-D-BASIC 20 MM in DEXT 5% WATER 243.3333 ML IV NR (11:00)
[2023-05-21] VITALS (8 sets, daily range): BP systolic 110–126; BP diastolic 72–80; PULSE 66–97; RESP 16–21; TEMP 96–97.8; O2SAT 99
[2023-05-21] MEDS: ACYCLOVIR 400 MG TABLET PO SCH ×4 (00:22→18:17)
[2023-05-21] MEDS: VANCOMYCIN 1000MG/20ML ORAL SOLN PO SCH ×4 (00:24→18:18)
[2023-05-21] MEDS: MIDODRINE HCL 5MG TABLET PO SCH ×3 (00:26→18:17)
[2023-05-21] MEDS: ACETYLCYSTEINE 100MG/ML 10% VIAL 4ML INH SCH ×2 (01:19→15:01)
[2023-05-21] MEDS: CEFEPIME 1,000 MG in DEXTROSE 5% WATER 50 ML IV SCH ×2 (05:47→18:14)
[2023-05-21] MEDS: VANCOMYCIN 500MG PREMIX 100 ML IV SCH ×2 (06:23→19:23)
[2023-05-21 06:56] LABS: HEMATOCRIT. 31.3 % (42.0-52.0); HEMOGLOBIN. 9.3 g/dL (14.0-18.0); MEAN CORPUSCULAR HEMOGLOBIN 23.7 pg (28.0-32.0); MEAN CORPUSCULAR HGB CONC 29.7 g/dL (31.0-37.0); MEAN CORPUSCULAR VOLUME 79.8 fL (80.0-94.0); MEAN PLATELET VOLUME 10.4 fl (7.4-10.4); PLATELET 315 x1000/uL (130-400); RED BLOOD CELL COUNT 3.93 mill/uL (4.7-6.1); RED CELL DISTRIBUTION WIDTH 19.3 % (11.6-14.6); WHITE BLOOD COUNT 13.4 x1000/uL (4.5-11.0)
[2023-05-21 06:58] LABS: DIFFERENTIAL COMMENT 1
[2023-05-21 08:02] LABS: CALCIUM 7.1 mg/dL (8.5-10.1); CARBON DIOXIDE 19 mEq/L (21-32); CREATININE 0.6 mg/dL (0.6-1.3); GLUCOSE 61 mg/dL (70-105); INDEX HEMOLYSI 1 (1-3); INDEX ICTERIC 1 (1-4); INDEX LIPEMIC 1 (1-3); PHOSPHORUS 2.4 mg/dL (2.5-4.9); UREA NITROGEN BLOOD 7 mg/dL (7-21)
[2023-05-21 08:14] LABS: POTASSIUM 3.7 mEq/L (3.5-5.1)
[2023-05-21] MEDS: SODIUM CHLORIDE 0.9% 1,000 ML IV SCH ×2 (08:49→18:11)
[2023-05-21 09:12] LABS: CHLORIDE 113 mEq/L (98-107); SODIUM 140 mEq/L (136-145)
[2023-05-21] MEDS ORDERED: POTASSIUM-SODIUM PHOSPHATE POWDER PACKET PO NR (10:15)
[2023-05-21] MEDS: GUAIFENESIN 200MG/10ML SUGAR FREE UDC PO PRN (10:48)
[2023-05-21] MEDS: METRONIDAZOLE 500MG TABLET PO SCH ×2 (10:48→22:10)
[2023-05-21] MEDS: POTASSIUM CHLORIDE 20MEQ TABLET SR PO SCH (10:48)
[2023-05-21] MEDS: MUPIROCIN 2% OINT 15GM NS SCH ×2 (11:11→21:00)
[2023-05-21 13:24] LABS: ANISOCYTOSIS 2+; MICROCYTOSIS 1+; PLATELET ESTIMATE NORMAL
[2023-05-21] MEDS: BUDESONIDE 0.5MG/2ML NEB HHN SCH ×2 (14:26→20:31)
[2023-05-21] MEDS ORDERED: IPRATROPIUM BROMIDE (0.02%) 0.5MG/2.5ML NEB ONE (14:29)
[2023-05-21] MEDS: IPRATROPIUM BROMIDE (0.02%) 0.5MG/2.5ML NEB HHN SCH (14:30)
[2023-05-22] VITALS (8 sets, daily range): BP systolic 110–143; BP diastolic 60–89; PULSE 61–105; RESP 18–22; TEMP 96–98.8
[2023-05-22] MEDS: ACYCLOVIR 400 MG TABLET PO SCH ×5 (00:18→23:57)
[2023-05-22] MEDS: MIDODRINE HCL 5MG TABLET PO SCH ×2 (02:33→09:35)
[2023-05-22] MEDS: CEFEPIME 1,000 MG in DEXTROSE 5% WATER 50 ML IV SCH ×2 (05:11→18:06)
[2023-05-22] MEDS: VANCOMYCIN 500MG PREMIX 100 ML IV SCH ×2 (05:14→18:03)
[2023-05-22 05:48] LABS: HEMATOCRIT 31.6 % (42.0-52.0); HEMOGLOBIN 9.9 g/dL (14.0-18.0); MEAN CORPUSCULAR HEMOGLOBIN 24.2 pg (28.0-32.0); MEAN CORPUSCULAR HGB CONC 31.4 g/dL (31.0-37.0); MEAN CORPUSCULAR VOLUME 77.2 fL (80.0-94.0); PLATELET 373 x1000/uL (130-400); RED BLOOD CELL COUNT 4.09 mill/uL (4.7-6.1); RED CELL DISTRIBUTION WIDTH 19.3 % (11.6-14.6); WHITE BLOOD COUNT 11.5 x1000/uL (4.5-11.0)
[2023-05-22] MEDS: VANCOMYCIN 1000MG/20ML ORAL SOLN PO SCH ×5 (05:51→23:58)
[2023-05-22 05:56] LABS: CHLORIDE 111 mEq/L (98-107); INDEX HEMOLYSI 1 (1-3); INDEX ICTERIC 1 (1-4); INDEX LIPEMIC 1 (1-3); POTASSIUM 3.6 mEq/L (3.5-5.1); SODIUM 138 mEq/L (136-145)
[2023-05-22 06:03] LABS: CALCIUM 7.7 mg/dL (8.5-10.1); CARBON DIOXIDE 19 mEq/L (21-32); CREATININE 0.6 mg/dL (0.6-1.3); GLUCOSE 92 mg/dL (70-105); UREA NITROGEN BLOOD 8 mg/dL (7-21)
[2023-05-22] MEDS: BUDESONIDE 0.5MG/2ML NEB HHN SCH (08:20)
[2023-05-22] MEDS: POTASSIUM CHLORIDE 20MEQ TABLET SR PO SCH (09:34)
[2023-05-22] MEDS: METRONIDAZOLE 500MG TABLET PO SCH ×2 (09:35→23:56)
[2023-05-22] MEDS: MUPIROCIN 2% OINT 15GM NS SCH ×2 (09:36→23:59)
[2023-05-22] MEDS: SODIUM CHLORIDE 0.9% 1,000 ML IV SCH ×2 (09:38→16:38)
[2023-05-22] MEDS: GUAIFENESIN 200MG/10ML SUGAR FREE UDC PO PRN (12:05)
[2023-05-22] MEDS: MIDODRINE HCL 2.5MG TABLET PO SCH ×2 (18:04→23:57)
[2023-05-22] MEDS: IPRATROPIUM/ALBUTEROL 0.5-3(2.5)MG/3ML NEB HHN SCH (21:00)
[2023-05-22] MEDS: ATORVASTATIN CALCIUM 20MG TABLET GT SCH (23:56)
[2023-05-23] VITALS (10 sets, daily range): BP systolic 100–136; BP diastolic 63–80; PULSE 72–114; RESP 17–24; TEMP 97–99.3; O2SAT 99
[2023-05-23] MEDS: IPRATROPIUM/ALBUTEROL 0.5-3(2.5)MG/3ML NEB HHN SCH ×4 (01:19→20:21)
[2023-05-23] MEDS: CEFEPIME 1,000 MG in DEXTROSE 5% WATER 50 ML IV SCH ×2 (05:39→18:00)
[2023-05-23] MEDS: VANCOMYCIN 500MG PREMIX 100 ML IV SCH ×2 (05:40→18:00)
[2023-05-23] MEDS: VANCOMYCIN 1000MG/20ML ORAL SOLN PO SCH ×4 (05:40→23:07)
[2023-05-23] MEDS: ACYCLOVIR 400 MG TABLET PO SCH ×4 (05:40→23:07)
[2023-05-23] MEDS: MIDODRINE HCL 2.5MG TABLET PO SCH ×3 (05:42→21:15)
[2023-05-23] MEDS: ACETYLCYSTEINE 100MG/ML 10% VIAL 4ML INH SCH ×2 (08:52→13:53)
[2023-05-23] MEDS: METRONIDAZOLE 500MG TABLET PO SCH ×2 (09:46→21:15)
[2023-05-23] MEDS: POTASSIUM CHLORIDE 20MEQ TABLET SR PO SCH (09:46)
[2023-05-23] MEDS: AMIODARONE HCL 200 MG TABLET GT SCH (09:47)
[2023-05-23] MEDS: MUPIROCIN 2% OINT 15GM NS SCH (09:49)
[2023-05-23] MEDS: SODIUM CHLORIDE 0.9% 1,000 ML IV SCH ×2 (10:12)
[2023-05-23] MEDS: ATORVASTATIN CALCIUM 20MG TABLET GT SCH (21:15)
[2023-05-24] VITALS (9 sets, daily range): BP systolic 106–130; BP diastolic 79–85; PULSE 94–111; RESP 16–20; TEMP 97.5–98.8; O2SAT 96–97
[2023-05-24] MEDS: IPRATROPIUM/ALBUTEROL 0.5-3(2.5)MG/3ML NEB HHN SCH ×3 (01:08→18:00)
[2023-05-24] MEDS: MIDODRINE HCL 2.5MG TABLET PO SCH ×3 (06:15→21:41)
[2023-05-24] MEDS: VANCOMYCIN 500MG PREMIX 100 ML IV SCH ×2 (06:15→17:19)
[2023-05-24] MEDS: AMIODARONE HCL 200 MG TABLET GT SCH (09:55)
[2023-05-24] MEDS: POTASSIUM CHLORIDE 20MEQ TABLET SR PO SCH (09:55)
[2023-05-24] MEDS ORDERED: GUAIFENESIN 200MG TABLET PO PRN (10:00)
[2023-05-24] MEDS: VANCOMYCIN 1000MG/20ML ORAL SOLN PO SCH ×3 (12:00→23:27)
[2023-05-24] MEDS ORDERED: POTASSIUM CHLORIDE 20MEQ/PACKET GT NR (14:45)
[2023-05-24] MEDS: ATORVASTATIN CALCIUM 20MG TABLET GT SCH (21:25)
[2023-05-25] VITALS (9 sets, daily range): BP systolic 109–130; BP diastolic 70–88; PULSE 81–105; RESP 17–20; TEMP 97.9–99.3; O2SAT 96–97
[2023-05-25] MEDS: IPRATROPIUM/ALBUTEROL 0.5-3(2.5)MG/3ML NEB HHN SCH ×5 (01:16→21:32)
[2023-05-25] MEDS: ACETYLCYSTEINE 100MG/ML 10% VIAL 4ML INH SCH ×3 (03:05→21:32)
[2023-05-25] MEDS: VANCOMYCIN 1000MG/20ML ORAL SOLN PO SCH ×3 (06:14→17:04)
[2023-05-25] MEDS: MIDODRINE HCL 2.5MG TABLET PO SCH ×3 (06:14→22:06)
[2023-05-25] MEDS: VANCOMYCIN 500MG PREMIX 100 ML IV SCH ×2 (06:14→17:05)
[2023-05-25 08:10] LABS: HEMATOCRIT. 28.6 % (42.0-52.0); HEMOGLOBIN. 8.7 g/dL (14.0-18.0); MEAN CORPUSCULAR HEMOGLOBIN 24.2 pg (28.0-32.0); MEAN CORPUSCULAR HGB CONC 30.4 g/dL (31.0-37.0); MEAN CORPUSCULAR VOLUME 79.8 fL (80.0-94.0); MEAN PLATELET VOLUME 9.6 fl (7.4-10.4); PLATELET 442 x1000/uL (130-400); RED BLOOD CELL COUNT 3.58 mill/uL (4.7-6.1); RED CELL DISTRIBUTION WIDTH 20.4 % (11.6-14.6); WHITE BLOOD COUNT 20.3 x1000/uL (4.5-11.0)
[2023-05-25 08:18] LABS: DIFFERENTIAL COMMENT 1
[2023-05-25 08:32] LABS: CHLORIDE 110 mEq/L (98-107); INDEX HEMOLYSI 1 (1-3); INDEX ICTERIC 1 (1-4); INDEX LIPEMIC 1 (1-3); POTASSIUM 3.6 mEq/L (3.5-5.1); SODIUM 136 mEq/L (136-145)
[2023-05-25] MEDS: AMIODARONE HCL 200 MG TABLET GT SCH (08:35)
[2023-05-25] MEDS: POTASSIUM CHLORIDE 20MEQ/PACKET PO SCH (08:36)
[2023-05-25 08:39] LABS: CALCIUM 7.7 mg/dL (8.5-10.1); CARBON DIOXIDE 21 mEq/L (21-32); CREATININE 0.6 mg/dL (0.6-1.3); GLUCOSE 97 mg/dL (70-105); UREA NITROGEN BLOOD 10 mg/dL (7-21)
[2023-05-25] MEDS ORDERED: CEFTRIAXONE 1GM PREMIX 50 ML IV SCH (10:15)
[2023-05-25] MEDS ORDERED: CEFTRIAXONE 1,000 MG in DEXTROSE 5% WATER 50 ML IV SCH (11:30)
[2023-05-25] MEDS ORDERED: AZITHROMYCIN 500 MG in DEXT 5% WATER 250 ML IV SCH (12:00)
[2023-05-25 12:23] LABS: ANISOCYTOSIS 2+; HYPOCHROMASIA 1+
[2023-05-25 12:24] LABS: MICROCYTOSIS 1+; PLATELET ESTIMATE SLIGHTLY INCREASED
[2023-05-25] MEDS: ATORVASTATIN CALCIUM 20MG TABLET GT SCH (22:06)
[2023-05-26] VITALS (10 sets, daily range): BP systolic 102–117; BP diastolic 67–84; PULSE 81–108; RESP 15–24; TEMP 97.6–98.8
[2023-05-26] MEDS: VANCOMYCIN 1000MG/20ML ORAL SOLN PO SCH ×4 (00:56→17:50)
[2023-05-26] MEDS: MIDODRINE HCL 2.5MG TABLET PO SCH ×3 (05:32→21:04)
[2023-05-26 08:01] LABS: HEMATOCRIT. 26.7 % (42.0-52.0); HEMOGLOBIN. 8.3 g/dL (14.0-18.0); MEAN CORPUSCULAR HEMOGLOBIN 24.2 pg (28.0-32.0); MEAN CORPUSCULAR HGB CONC 31.1 g/dL (31.0-37.0); MEAN CORPUSCULAR VOLUME 77.8 fL (80.0-94.0); MEAN PLATELET VOLUME 9.5 fl (7.4-10.4); PLATELET 489 x1000/uL (130-400); RED BLOOD CELL COUNT 3.43 mill/uL (4.7-6.1); RED CELL DISTRIBUTION WIDTH 20.1 % (11.6-14.6); WHITE BLOOD COUNT 19.5 x1000/uL (4.5-11.0)
[2023-05-26] MEDS: POTASSIUM CHLORIDE 20MEQ/PACKET PO SCH (08:10)
[2023-05-26] MEDS: AMIODARONE HCL 200 MG TABLET GT SCH (08:10)
[2023-05-26 08:17] LABS: DIFFERENTIAL COMMENT 1
[2023-05-26 10:18] LABS: CHLORIDE 111 mEq/L (98-107); INDEX HEMOLYSI 1 (1-3); INDEX ICTERIC 1 (1-4); INDEX LIPEMIC 1 (1-3); POTASSIUM 3.8 mEq/L (3.5-5.1); SODIUM 135 mEq/L (136-145)
[2023-05-26 10:25] LABS: CALCIUM 7.1 mg/dL (8.5-10.1); CARBON DIOXIDE 22 mEq/L (21-32); CREATININE 0.6 mg/dL (0.6-1.3); GLUCOSE 97 mg/dL (70-105); UREA NITROGEN BLOOD 8 mg/dL (7-21); VANCOMYCIN TROUGH 13.5 ug/mL (5.0-10.0)
[2023-05-26] MEDS: IPRATROPIUM/ALBUTEROL 0.5-3(2.5)MG/3ML NEB HHN SCH ×3 (14:39→20:19)
[2023-05-26] MEDS: ACETYLCYSTEINE 100MG/ML 10% VIAL 4ML INH SCH (15:49)
[2023-05-26] MEDS: ENOXAPARIN 40MG/0.4ML SYR SUBCUT SCH (17:49)
[2023-05-26] MEDS: ATORVASTATIN CALCIUM 20MG TABLET GT SCH (21:04)
[2023-05-27] VITALS (10 sets, daily range): BP systolic 102–118; BP diastolic 65–81; PULSE 92–117; RESP 16–20; TEMP 96.6–98.5; O2SAT 96–98
[2023-05-27] MEDS: VANCOMYCIN 1000MG/20ML ORAL SOLN PO SCH ×4 (00:29→18:43)
[2023-05-27] MEDS: IPRATROPIUM/ALBUTEROL 0.5-3(2.5)MG/3ML NEB HHN SCH ×4 (01:47→17:28)
[2023-05-27] MEDS: MIDODRINE HCL 2.5MG TABLET PO SCH ×3 (06:01→21:13)
[2023-05-27] MEDS: ENOXAPARIN 40MG/0.4ML SYR SUBCUT SCH ×2 (06:02→18:43)
[2023-05-27 06:42] LABS: MICROCYTOSIS 1+; PLATELET ESTIMATE SLIGHTLY INCREASED
[2023-05-27 07:58] LABS: CHLORIDE 111 mEq/L (98-107); INDEX HEMOLYSI 1 (1-3); INDEX ICTERIC 1 (1-4); INDEX LIPEMIC 1 (1-3); POTASSIUM 3.5 mEq/L (3.5-5.1); SODIUM 139 mEq/L (136-145)
[2023-05-27 08:04] LABS: HEMATOCRIT. 27.1 % (42.0-52.0); HEMOGLOBIN. 8.1 g/dL (14.0-18.0); PLATELET 455 x1000/uL (130-400); RED BLOOD CELL COUNT 3.39 mill/uL (4.7-6.1); RED CELL DISTRIBUTION WIDTH 20.2 % (11.6-14.6); WHITE BLOOD COUNT 18.9 x1000/uL (4.5-11.0)
[2023-05-27 08:07] LABS: CALCIUM 7.4 mg/dL (8.5-10.1); CARBON DIOXIDE 23 mEq/L (21-32); CREATININE 0.6 mg/dL (0.6-1.3); GLUCOSE 101 mg/dL (70-105); UREA NITROGEN BLOOD 9 mg/dL (7-21)
[2023-05-27 08:08] LABS: DIFFERENTIAL COMMENT 1
[2023-05-27] MEDS: POTASSIUM CHLORIDE 20MEQ/PACKET PO SCH (09:38)
[2023-05-27] MEDS: AMIODARONE HCL 200 MG TABLET GT SCH (09:38)
[2023-05-27] MEDS ORDERED: POTASSIUM CHLORIDE 20MEQ/PACKET PO NR (09:45)
[2023-05-27] MEDS ORDERED: POTASSIUM CHLORIDE 20MEQ TABLET SR PO NR (09:45)
[2023-05-27 12:49] LABS: INR 1.1; PROTHROMBIN TIME 12.1 sec (9.6-11.0)
[2023-05-27 13:32] LABS: PHOSPHORUS 2.7 mg/dL (2.5-4.9)
[2023-05-27 13:51] LABS: ANISOCYTOSIS 2+; PLATELET ESTIMATE INCREASED
[2023-05-27] MEDS: ATORVASTATIN CALCIUM 20MG TABLET GT SCH (21:10)
[2023-05-28] VITALS (8 sets, daily range): BP systolic 99–168; BP diastolic 64–88; PULSE 81–115; RESP 18–20; TEMP 96.4–98
[2023-05-28] MEDS: VANCOMYCIN 1000MG/20ML ORAL SOLN PO SCH ×4 (02:35→18:00)
[2023-05-28] MEDS: ENOXAPARIN 40MG/0.4ML SYR SUBCUT SCH ×2 (06:52→18:07)
[2023-05-28] MEDS: MIDODRINE HCL 2.5MG TABLET PO SCH ×3 (06:53→20:52)
[2023-05-28 07:44] LABS: HEMATOCRIT. 24.8 % (42.0-52.0); HEMOGLOBIN. 7.7 g/dL (14.0-18.0); MEAN CORPUSCULAR HEMOGLOBIN 24.5 pg (28.0-32.0); MEAN CORPUSCULAR HGB CONC 31.2 g/dL (31.0-37.0); MEAN CORPUSCULAR VOLUME 78.4 fL (80.0-94.0); MEAN PLATELET VOLUME 9.1 fl (7.4-10.4); PLATELET 460 x1000/uL (130-400); RED BLOOD CELL COUNT 3.16 mill/uL (4.7-6.1); RED CELL DISTRIBUTION WIDTH 20.5 % (11.6-14.6); WHITE BLOOD COUNT 14.7 x1000/uL (4.5-11.0)
[2023-05-28 08:01] LABS: DIFFERENTIAL COMMENT 1
[2023-05-28 08:23] LABS: CALCIUM 7.5 mg/dL (8.5-10.1); CHLORIDE 111 mEq/L (98-107); INDEX HEMOLYSI 1 (1-3); INDEX ICTERIC 1 (1-4); INDEX LIPEMIC 1 (1-3); POTASSIUM 3.6 mEq/L (3.5-5.1); SODIUM 140 mEq/L (136-145); UREA NITROGEN BLOOD 10 mg/dL (7-21)
[2023-05-28 08:30] LABS: CARBON DIOXIDE 24 mEq/L (21-32); CREATININE 0.5 mg/dL (0.6-1.3); GLUCOSE 97 mg/dL (70-105)
[2023-05-28] MEDS: POTASSIUM CHLORIDE 20MEQ/PACKET PO SCH (09:00)
[2023-05-28] MEDS: AMIODARONE HCL 200 MG TABLET GT SCH (09:30)
[2023-05-28 09:32] LABS: ANISOCYTOSIS 2+; MICROCYTOSIS 1+; PLATELET ESTIMATE INCREASED
[2023-05-28] MEDS: IPRATROPIUM/ALBUTEROL 0.5-3(2.5)MG/3ML NEB HHN SCH ×2 (11:54→15:15)
[2023-05-28] MEDS: ATORVASTATIN CALCIUM 20MG TABLET GT SCH (20:51)
[2023-05-29] VITALS (12 sets, daily range): BP systolic 101–114; BP diastolic 73–80; PULSE 99–114; RESP 17–24; TEMP 96–98.8; O2SAT 94–100
[2023-05-29] MEDS: VANCOMYCIN 1000MG/20ML ORAL SOLN PO SCH ×4 (00:16→17:35)
[2023-05-29] MEDS: ACETYLCYSTEINE 100MG/ML 10% VIAL 4ML INH SCH ×5 (01:50→20:29)
[2023-05-29] MEDS: IPRATROPIUM/ALBUTEROL 0.5-3(2.5)MG/3ML NEB HHN SCH ×6 (01:50→20:29)
[2023-05-29] MEDS: ENOXAPARIN 40MG/0.4ML SYR SUBCUT SCH ×2 (05:39→17:35)
[2023-05-29] MEDS: MIDODRINE HCL 2.5MG TABLET PO SCH ×3 (05:41→22:22)
[2023-05-29 06:17] LABS: HEMATOCRIT. 22.9 % (42.0-52.0); HEMOGLOBIN. 7.1 g/dL (14.0-18.0); MEAN CORPUSCULAR HEMOGLOBIN 24.3 pg (28.0-32.0); MEAN CORPUSCULAR VOLUME 78.3 fL (80.0-94.0); MEAN PLATELET VOLUME 9.2 fl (7.4-10.4); PLATELET 432 x1000/uL (130-400); RED BLOOD CELL COUNT 2.92 mill/uL (4.7-6.1); RED CELL DISTRIBUTION WIDTH 20.6 % (11.6-14.6); WHITE BLOOD COUNT 12.3 x1000/uL (4.5-11.0)
[2023-05-29 06:29] LABS: DIFFERENTIAL COMMENT 1
[2023-05-29 07:29] LABS: CALCIUM 7.1 mg/dL (8.5-10.1); CHLORIDE 110 mEq/L (98-107); INDEX HEMOLYSI 1 (1-3); INDEX ICTERIC 1 (1-4); INDEX LIPEMIC 1 (1-3); POTASSIUM 3.5 mEq/L (3.5-5.1); SODIUM 140 mEq/L (136-145)
[2023-05-29 07:32] LABS: CARBON DIOXIDE 24 mEq/L (21-32); CREATININE 0.5 mg/dL (0.6-1.3); GLUCOSE 98 mg/dL (70-105); UREA NITROGEN BLOOD 11 mg/dL (7-21)
[2023-05-29] MEDS: POTASSIUM CHLORIDE 20MEQ/PACKET PO SCH (09:42)
[2023-05-29] MEDS: AMIODARONE HCL 200 MG TABLET GT SCH (09:42)
[2023-05-29 13:18] LABS: ANISOCYTOSIS 1+; MICROCYTOSIS 1+; PLATELET ESTIMATE INCREASED
[2023-05-29] MEDS: ATORVASTATIN CALCIUM 20MG TABLET GT SCH (22:23)
[2023-05-30] VITALS (9 sets, daily range): BP systolic 100–112; BP diastolic 69–75; PULSE 80–117; RESP 16–22; TEMP 96–97.1; O2SAT 95–100
[2023-05-30] MEDS: IPRATROPIUM/ALBUTEROL 0.5-3(2.5)MG/3ML NEB HHN SCH ×5 (00:04→16:01)
[2023-05-30] MEDS: ACETYLCYSTEINE 100MG/ML 10% VIAL 4ML INH SCH ×2 (00:04→10:07)
[2023-05-30] MEDS: VANCOMYCIN 1000MG/20ML ORAL SOLN PO SCH ×3 (02:58→11:08)
[2023-05-30] MEDS: ENOXAPARIN 40MG/0.4ML SYR SUBCUT SCH ×2 (05:33→17:50)
[2023-05-30] MEDS: MIDODRINE HCL 2.5MG TABLET PO SCH ×2 (05:33→14:00)
[2023-05-30] MEDS ORDERED: GUAIFENESIN/CODEINE 200-20MG/10ML UDC PO SCH (09:00)
[2023-05-30] MEDS: GUAIFENESIN 200MG/10ML SUGAR FREE UDC PO SCH ×3 (11:08→17:50)
[2023-05-30] MEDS: AMIODARONE HCL 200 MG TABLET GT SCH (11:09)
== END 2023-05-30 18:30 | DRG 720 ==
LOC: ER 15:17 → EDBEDREQTM 18:03 → EDBEDREQ 18:03 → CVICU 21:44 → EDBEDREQ 21:48 → EDBEDREQSVC 21:48 → 8WST 05-20 22:51
PROVIDERS: ADMIT Internal Medicine; ATTEND Internal Medicine
PROC: 5A1945Z Respiratory Ventilation, 24-96 Consecutive Hours (ICD-10-PCS; principal; 2023-05-15)
PROC: 0BH17EZ Insertion of Endotracheal Airway into Trachea, Via Natural or Artificial Opening (ICD-10-PCS; 2023-05-15)
PROC: 05HY33Z Insertion of Infusion Device into Upper Vein, Percutaneous Approach (ICD-10-PCS; 2023-05-16)
PROC: B54MZZA Ultrasonography of Right Upper Extremity Veins, Guidance (ICD-10-PCS; 2023-05-16)
DX: A41.02 Sepsis due to Methicillin resistant Staphylococcus aureus (principal); J96.01 Acute respiratory failure with hypoxia; R65.21 Severe sepsis with septic shock; J69.0 Pneumonitis due to inhalation of food and vomit; C80.0 Disseminated malignant neoplasm, unspecified; E43 Unspecified severe protein-calorie malnutrition; A04.72 Enterocolitis due to Clostridium difficile, not specified as recurrent; N17.9 Acute kidney failure, unspecified; K57.31 Diverticulosis of large intestine without perforation or abscess with bleeding; I47.20 Ventricular tachycardia, unspecified; I31.39 Other pericardial effusion (noninflammatory); I47.1 Supraventricular tachycardia; I82.411 Acute embolism and thrombosis of right femoral vein; C19 Malignant neoplasm of rectosigmoid junction; D63.0 Anemia in neoplastic disease; H54.8 Legal blindness, as defined in USA; C61 Malignant neoplasm of prostate; E87.6 Hypokalemia; N21.0 Calculus in bladder; E78.00 Pure hypercholesterolemia, unspecified; J44.0 Chronic obstructive pulmonary disease with (acute) lower respiratory infection; E86.0 Dehydration; F03.90 Unspecified dementia, unspecified severity, without behavioral disturbance, psychotic disturbance, mood disturbance, and anxiety; Z20.822 Contact with and (suspected) exposure to COVID-19; B02.9 Zoster without complications; I44.0 Atrioventricular block, first degree; I50.9 Heart failure, unspecified; I11.0 Hypertensive heart disease with heart failure; H40.9 Unspecified glaucoma; H26.9 Unspecified cataract; I82.431 Acute embolism and thrombosis of right popliteal vein; M19.90 Unspecified osteoarthritis, unspecified site; N28.1 Cyst of kidney, acquired; L89.159 Pressure ulcer of sacral region, unspecified stage; D50.9 Iron deficiency anemia, unspecified; E87.3 Alkalosis; F32.A Depression, unspecified; N13.6 Pyonephrosis; K56.41 Fecal impaction; K21.9 Gastro-esophageal reflux disease without esophagitis; R13.10 Dysphagia, unspecified; Z79.899 Other long term (current) drug therapy; Z87.440 Personal history of urinary (tract) infections; Z86.73 Personal history of transient ischemic attack (TIA), and cerebral infarction without residual deficits; Z93.1 Gastrostomy status; Z74.01 Bed confinement status; Z22.322 Carrier or suspected carrier of Methicillin resistant Staphylococcus aureus; Z68.1 Body mass index [BMI] 19.9 or less, adult; Z87.01 Personal history of pneumonia (recurrent)
CPT/HCPCS: 31500; 36415; 36573; 36600; 71045; 74018; 76770; 80048; 80053; 80202; 81003; 82270; 82375; 82550; 82570; 82728; 82805; 83540; 83550; 83605; 83735; 84100; 84145; 84300; 84436; 84443; 84484; 85025; 85027; 86850; 86900; 87070; 87077; 87186; 87426; 87493; 93005; 93970; 94002; 94003; 94640; 97110; 97162; 97530; 99285; C1752; J0133; J0282; J0456; J0692; J0696; J1160; J1650; J2370; J2543; J2704; J3370; J3480; J3490; J7030; J7060; J7608; J7626; P9041; Q9963; A4315